=== PATIENT | male | born 1955 | race Caucasian/White ===

== ENCOUNTER → 2017-05-07 | Outpatient (CLI) | payer OTHER ==
[2017-05-07 18:07] LABS: ALT/SGPT 30 U/L (12-78); BLOOD UREA NITROGEN 17 mg/dl (7-18); BUN/CREATININE RATIO 17.4 (10-20); CARBON DIOXIDE 28 mmol/L (21-32); CHLORIDE 105 mmol/L (98-107); CHOLESTEROL 175 mg/dl (0-200); CREATININE 0.96 mg/dl (0.60-1.40); GLUCOSE 94 mg/dl (70-99); POTASSIUM 3.7 mmol/L (3.5-5.1); SODIUM 141 mmol/L (136-145); TRIGLYCERIDES 100 mg/dl (0-150); VERY LOW DENSITY LIPOPROT CALC 20 mg/dl
[2017-05-07 18:10] LABS: ALB/GLOB RATIO 1.1 (0.9-2); ALKALINE PHOSPHATASE 79 U/L (45-117); AST/SGOT 19 U/L (15-37); CHOLESTEROL/HDL RATIO 3.8; HDL CHOLESTEROL 46 mg/dl; LDL CHOLESTEROL CALCULATED 109 mg/dl
[2017-05-07 18:32] LABS: CALCIUM 9.3 mg/dl (8.5-10.1)
[2017-05-08 05:58] LABS: ESTIMATED AVERAGE GLUCOSE 140 mg/dl; HA1C FLAG Normal (Normal)
== END | disposition home or self-care (01) ==
LOC: C.LABBC 13:55
PROVIDERS: ATTEND Family Medicine
DX: I10 Essential (primary) hypertension (principal); E78.5 Hyperlipidemia, unspecified; R73.03 Prediabetes

== ENCOUNTER → 2017-05-16 | Outpatient (CLI) | payer OTHER ==
[~2017-05-16] VITALS: Ht 179.1 cm; Wt 108.6 kg
[2017-05-16 14:16] VITALS: BP 129/79; PULSE 65; Ht 179.1 cm; Wt 108.6 kg
== END | disposition home or self-care (01) ==
LOC: C.NEUR 13:10
PROVIDERS: ATTEND Internal Medicine Pulmonary Disease
DX: G47.33 Obstructive sleep apnea (adult) (pediatric) (principal); G47.61 Periodic limb movement disorder; R53.83 Other fatigue

== ENCOUNTER → 2017-06-25 | Outpatient (CLI) | payer OTHER ==
--- NOTE | 2017-06-26 07:46 | PAP/PSG TECHNICIAN REPORT ---
[facility] Review Nurse Polysomnogram Report Study name: None Report date: 06/26/2017 Study date: 06/25/2017 Referring Physician: Silvio You M.D. Name: SARITA PAOLO Paulo Interpreting Physician: Silvio You M.D. Date of : 1955 Review Nurse: Hiral Fairbanks, PSGT. Sex: Male Age: 61 StudyType: PSG Weight: 230 lbs Height: 61 years, Height 5' 10" Neck Circum:17.5 inches BMI: 33 Medications: ATROVASTATIN 20 MG, Citalopram 20 MG, LISINOPRIL 20 MG. Patient History 61 YR. OLD MALE IN ROOM 7, HERE TONIGHT FOR A TOTRATION SLEEP STUDY. PT. STATES THAT HE ISNT FEELING RESTED HE ONCE DID USEING THE C-PAP, HE STATES THAT HE SNORES THROUGH THE [place] ASLEEP DURING THE DAY. HE ALSO STATES THAT HW HAS GAINED WEIGHT AND STRUGGLES TO STAY AWAKE WHILE DRIVING. ESS = 14, NECK = 17.5 INCHES. Parameters Monitored NPSG: E1-M2, E2-M1, Fp1-M2, Fp2-M1, F3-M2, F4-M2, F4-M1, C3-M2, C4-M2, C4-M1, O1-M2, O2-M2, O2-M1, T3-M2, T4-M1, P3-M2, P4-M1, CHIN1, CHIN2, HR, EKG, Legs, PFLOW, SNOR, FLOW, CFLOW, Tidal Volume, THOR, ABDO, SpO2, PLTH, CPRESS, ETCO2 Wave, ETCO2, pH Sleep Architecture Sleep Stages Time at Lights Off 10:44:11 PM STAGES Time (min.) TST (%) Time at Lights On 5:44:41 AM Wake 131.0 -- Total Recording Time (TRT) 422.00 min. N1 24.0 8 Total Sleep Period (TSP) 386.5 min. N2 201.5 70 Total Sleep Time (TST) 289.5min. N3 0.0 0 Awake Time 131.0 min. REM 64.0 22 Wake after Sleep Onset 97.0 min. Sleep Efficiency (SE) 69 % Sleep Onset Latency (MARIA ISABEL) 34.0 min. Number of Stage 1 Shifts None Awakenings 10 Stage Changes 41 Number of REM periods 3 REM 64.0 22 REM Latency 259.5 min. NREM 225.5 78 Body Position Analysis Supine Right Left Side Prone Vertical Total Sleep Time (min.) 153.4 0.0 181.3 181.28 0.0 0.0 Total Sleep Time (%) 37% 0% 63% 63 0% N/A% Total Sleep Time REM (min.) 42.5 0.0 21.5 None 0.0 0.0 Total Sleep Time NREM (min.) 65.7 0.0 159.8 None 0.0 0.0 Intermittent Wake (min.) 45.2 0.0 85.8 None 0.0 0.0 Total Sleep Period (%) 36% None None None None None Arousals Myoclonus (PLM) * Events Count Index Events Count Index Spontaneous 50 10 Events Awake (PLMW) 4 1.8 Respiratory 5 1.0 Events Asleep w/ Arousal (PLMA) 25 5.2 PLM 25 5 Events Asleep w/o Arousal (PLMS) 337 69.8 Snoring 12 2 Total Asleep 362 75.0 Total 92 19 Total 366 52 Respiratory Analysis * CA OA MA CH H RERA Total Count 0 0 0 0 12 0 12 Index 0.0 0.0 0.0 0 2.5 0 2.5 Mean Duration 0.0 0.0 0.0 0.00 17.1 0.0 17.1 Longest Duration 0.0 0.0 0.0 0.00 0.0 0.0 26.2 Respiratory Event Summary Total Supine ~Supine Right Left Prone REM NREM Apneas Count 0 0 0 N/A 0 N/A 0 0 Index 0.0 0 0 N/A 0.0 N/A 0 0 Hypopneas (4% Desat) Count 12 1 11 N/A 11 N/A 9 3 Index 2.5 0.6 4 N/A 3.6 N/A 8.4 0.8 Apneas & All Hypopneas Count 12 1 11 N/A 11 N/A 9 3 Index 2.5 1 4 N/A 4 N/A 8.4 0.8 Respiratory Events ([employer]+All Hyp+RERA) Count 12 1 11 N/A 11 N/A 9 3 Index 2.5 1 4 N/A 3.6 N/A 8.4 0.8 Respiratory Related Arousal Count 5 1 5 N/A 5 N/A 4 1 Index 1.0 0 2 N/A 2 N/A 4 0 Snoring Analysis Supine Right Left Prone REM NREM Total Snore duration 11.9 min Snores count 134 N/A 480 N/A 122 492 614 Snore mean duration 1.2 Sec Snores index 74 N/A 159 N/A 114.4 130.9 127.3 TST with snoring (%) 4.1% Desaturation Event Summary: Minimum %SpO2 Event Count Mean/Min/Max Duration(sec.) Desaturation Index % Time In Bed > 90 15 25.9 / 11.5 / 58.3 2.5 86.2 86 - 90 1 37.5 / 37.5 / 37.5 1.0 13.8 81 - 85 0 N/A 0.0 0.0 76 - 80 0 N/A 0.0 0.0 71 - 75 0 N/A 0.0 0.0 66 - 70 0 N/A 0.0 0.0 61 - 65 0 N/A 0.0 0.0 56 - 60 0 N/A 0.0 0.0 51 - 55 0 N/A 0.0 0.0 < 50 0 N/A 0.0 0.0 Total REM NREM Awake <50% 0.0 min. 0.0 min. 0.0 min. 0.0 min. 51 - 60% 0.0 min. 0.0 min. 0.0 min. 0.0 min. 61 - 70% 0.0 min. 0.0 min. 0.0 min. 0.0 min. 71 - 80% 0.0 min. 0.0 min. 0.0 min. 0.0 min. 81 - 90% 57.3 min. 14.4 min. 34.0 min. 8.8 min. 91 - 100% 357.2 min. 49.6 min. 191.5 min. 116.2 min. Average 92 92 92 93 Minimum SpO2 86 86 89 89 Desaturation Event Index 2.1 10.3 1.1 0.5 # Desat. Events below 89% 3 3 N/A N/A Time(%) with Saturation below 89% 0.1 0.1 0.0 0.0 Time(min.) with Saturation below 89% 0.6 0.6 0.0 0.0 Heart Rate Analysis End Tidal CO2 Analysis Min (bpm) Max (bpm) Average (bpm) TSP (mins) % of TSP Awake 43 87 57 Above 55 mmHg 0.0 0.0 NREM 43 77 56 50-55 mmHg 0.0 0.0 REM 42 84 54 45-50 mmHg 289.5 100.0 Overall 42 84 55 40-45 mmHg 0.0 0.0 35-40 mmHg 0.0 0.0 30-35 mmHg 0.0 0.0 Average ETCO2 0.0 Supplemental O2 Values Minimum O2 level: None Value Start Time End Time Review Nurse Comments slept in the right, left, and supine positions. No cardiac arrhythmia, PLM's noted. No bruxism noted. CPAP was initiated at +4 CMH2O and up-titrated to an optimal level of +9 CMH2O, which nearly eliminated all respiratory events and snoring. Pt. wore his mask during titration awoke to use the restroom one time during the night. The final report will be interpreted and signed by a sleep physician. The completed physician report will then be placed in the patient medical record. Pt. woke to use the restroom at 2:30 and stated that he had a headache. woke often during the study. Therapy Event: Therapy (cm H20) 0 5 7 8 9 Total Time at Pressure (min.) 1.2 331.8 10.9 57.1 19.5 TST at Pressure (min.) 0.0 202.0 10.9 57.1 19.5 # Periods 1 1 1 1 1 Sleep Onset (min.) N/A 32.8 0.0 0.0 0.0 REM Onset (min.) N/A 292.3 N/A 22.7 0.0 Sleep Efficiency % 0 60 100 100 100 Wakefulness (%) 100.0 39.1 0.0 0.0 0.0 Wakefulness (min.) 1.2 129.8 0.0 0.0 0.0 NREM 1 (%) 0.0 7.2 0.0 0.0 0.0 NREM 1 (min.) 0.0 24.0 0.0 0.0 0.0 NREM 2 (%) 0.0 47.2 100.0 39.7 58.9 NREM 2 (min.) 0.0 156.5 10.9 22.7 11.5 NREM 3 (%) 0.0 0.0 0.0 0.0 0.0 NREM 3 (min.) 0.0 0.0 0.0 0.0 0.0 REM (%) 0.0 6.5 0.0 60.3 41.1 REM (min.) 0.0 21.5 0.0 34.5 8.0 # Arousals N/A 81 2 5 4 Arousal Index N/A 24.1 11.1 5.3 12.3 # Snore N/A 507 67 25 15 Snore Index N/A 150.6 370.3 26.3 46.1 AHI N/A 3.3 0.0 0.0 3.1 AHI Supine N/A 0.0 0.0 0.0 3.1 AHI Non-Supine N/A 3.7 0.0 N/A 0.0 NREM AHI N/A 0.7 0.0 0.0 5.2 REM AHI N/A 25.1 N/A 0.0 0.0 RDI N/A 3.3 0.0 0.0 3.1 # Obstructive N/A 0 0 0 0 # Central Ap N/A 0 0 0 0 # Mixed N/A 0 0 0 0 # Hypopneas N/A 11 0 0 1 RERAS N/A 0 0 0 0 Total Respiratory Events N/A 11 0 0 1 Time Below SpO2 89.00% (min.) 0.0 0.6 0.0 0.0 0.0 Mean NREM SpO2 (%) N/A 92 91 91 93 Mean REM SpO2 (%) N/A 92 N/A 91 93 Mean Sleep SpO2 (%) N/A 92 91 91 93 Min NREM SpO2 (%) N/A 89 90 89 91 Min REM SpO2 (%) N/A 86 N/A 89 90 Position Supine (min.) 0.0 24.5 7.3 57.1 19.3 Position Non-supine (min.) 0.0 177.5 3.6 0.0 0.2 LM Index Sleep N/A 98.6 0.0 28.4 9.2 LM Index NREM N/A 105.1 0.0 7.9 15.7 LM Index REM N/A 44.7 N/A 41.8 0.0 Mean Heart Rate (bpm) N/A 56 53 53 49 Min Heart Rate (bpm) N/A 44 48 42 43
--- NOTE | 2017-06-26 09:14 | POLYSOMNOGRAPH REPORT ---
CLINICAL DATA: A 61-year-old male with BMI of 33 referred for a CPAP titration study. He has severe sleep apnea and has been on CPAP. He has snoring through the mask and falls asleep during the day. He has gained a significant amount of weight and has difficulty staying awake while driving. His [place] sleepiness score is elevated at 14/24. SLEEP ARCHITECTURE: Total recording time was 422 minutes. Total sleep period was 386.5 minutes. Total sleep time was 289.5 minutes divided between 225.5 minutes of non-REM sleep and 64 minutes of REM sleep. Sleep onset latency was delayed at 34 minutes. REM latency was delayed at 259.5 minutes. Sleep efficiency was reduced at 69%. Wake after sleep onset was 97 minutes. Sleep consisted of stage N1 8%, stage N2 70% and REM 22%. AROUSAL DATA: 92 arousals were recorded for an index of 19 per hour. 50 were spontaneous arousals. PLM DATA: Severely elevated limb movements during sleep were noted. There were 362 limb movements during sleep noted for an index of 75 per hour with arousal index of 5 per hour. RESPIRATORY DATA: The AHI was 2.5. There were 12 hypopneic episodes with a mean duration of 17.1 seconds. OXIMETRY DATA: Transient nocturnal hypoxemia was seen. Oxygen chinmay was 86%. Mean saturation was 92%. EKG: Heart rates ranged from 43-84 beats per minute. No arrhythmias were noted. MERCHANDISE DISPLAYER'S COMMENTS AND TREATMENT SUMMARY: The patient slept in the right, left, and supine position. The patient wore his own mask during titration. He was started on CPAP and titrated up to a level of 9 cm of water pressure. He awoke at 2:30 a.m. to use the restroom and stated that he had a headache. He awoke often during the study. At his final pressure setting, the patient slept for 19.5 minutes with an AHI of 3.1. IMPRESSION: Severe obstructive sleep apnea corrected with CPAP 9 cm of water pressure. RECOMMENDATIONS: The patient's CPAP should be set at 9 cm water pressure. He should be seen back in followup to document efficacy and compliance. [facility]
== END | disposition home or self-care (01) ==
LOC: C.NEUR 21:00
PROVIDERS: ATTEND Internal Medicine Pulmonary Disease
DX: G47.33 Obstructive sleep apnea (adult) (pediatric) (principal); R53.83 Other fatigue; G47.61 Periodic limb movement disorder

== ENCOUNTER → 2017-11-10 | Outpatient (CLI) | payer OTHER ==
[2017-11-10 14:32] LABS: ESTIMATED AVERAGE GLUCOSE 137 mg/dl; HA1C FLAG Normal (Normal)
[2017-11-10 14:37] LABS: ALB/GLOB RATIO 1.1 (0.9-2); ALT/SGPT 34 U/L (12-78); AST/SGOT 18 U/L (15-37); BLOOD UREA NITROGEN 15 mg/dl (7-18); BUN/CREATININE RATIO 16.1 (10-20); CALCIUM 9.7 mg/dl (8.5-10.1); CARBON DIOXIDE 26 mmol/L (21-32); CHLORIDE 104 mmol/L (98-107); CHOLESTEROL 136 mg/dl (0-200); CREATININE 0.95 mg/dl (0.60-1.40); GLUCOSE 112 mg/dl (70-99); POTASSIUM 4.1 mmol/L (3.5-5.1); SODIUM 136 mmol/L (136-145)
[2017-11-10 14:41] LABS: ALKALINE PHOSPHATASE 92 U/L (45-117); CHOLESTEROL/HDL RATIO 2.6; HDL CHOLESTEROL 52 mg/dl; LDL CHOLESTEROL CALCULATED 60 mg/dl; TRIGLYCERIDES 121 mg/dl (0-150); VERY LOW DENSITY LIPOPROT CALC 24 mg/dl
== END | disposition home or self-care (01) ==
LOC: C.LABBC 10:41
PROVIDERS: ATTEND Physician Assistant Medical
DX: R73.03 Prediabetes (principal); N40.1 Benign prostatic hyperplasia with lower urinary tract symptoms; Z11.59 Encounter for screening for other viral diseases; E78.5 Hyperlipidemia, unspecified